=== PATIENT | male | born 1945 | race Caucasian/White ===

== ENCOUNTER 2019-11-17 11:13 | Emergency (ER) | payer MEDICARE, BC ==
[2019-11-17] MEDS ORDERED: cefTRIAXone 500 MG in Lidocaine 1% 1 ML IM ONE (11:53)
[2019-11-17] MEDS ORDERED: Doxycycline 100 MG Cap PO ONE (11:54)
--- NOTE | 2019-11-17 11:59 | EDM.PDOC ---
ED HPI GENERAL MEDICAL PROBLEM - General Chief Complaint: General Stated Complaint: EPIDIDYMITIS Time Seen by Provider: 11/17/19 11:17 - History of Present Illness INITIAL COMMENTS - FREE TEXT/NARRATIVE: History of present illness: Patient presents with left testicular pain is been going on for approximately 10 days he went to another emergency department about a week ago and was prescribed oral vancomycin for epididymitis. Says the pain is been gradual he did have a little bit of blood in his urine he denies any sudden onset of pain no nausea or vomiting and he states that the testicle is gradually gotten more swollen and more tender to touch no fever chills no vomiting nothing makes it better touching or pressure makes it worse. Pain was of gradual onset he denies any penile discharge Review of systems: As per history of present illness and below otherwise all systems reviewed and negative. Past medical history: As per history of present illness and as reviewed below otherwise noncontributory. Surgical history: As per history of present illness and as reviewed below otherwise noncontributory. Social history: No reported history of drug or alcohol abuse. Family history: As per history of present illness and as reviewed below otherwise noncontributory. Physical exam: HEENT: Atraumatic, normocephalic, pupils reactive, negative for conjunctival pallor or scleral icterus, mucous membranes moist, throat clear, neck supple, nontender, trachea midline. Lungs: Clear to auscultation, breath sounds equal bilaterally, chest nontender. Heart: S1S2, regular, negative for clicks, rubs, or JVD. Abdomen: Soft, nondistended, nontender. Negative for masses or hepatosplenomegaly. Negative for costovertebral tenderness. Pelvis: Stable nontender. Genitourinary: Normal male genitalia with a very swollen left testicle. The testicle is edematous tender to touch there is no evidence of hernia there is no discharge. Rectal: Deferred. Extremities: Atraumatic, negative for cords or calf pain. Neurovascular u nremarkable. Neuro: Awake, alert, oriented. Cranial nerves II through XII unremarkable. Cerebellum unremarkable. Motor and sensory unremarkable throughout. Exam nonfocal. Diagnostics: [] Therapeutics: [] Impression: [] Plan: [] Definitive disposition and diagnosis as appropriate pending reevaluation and review of above. penile Pain Score (Numeric/FACES): 9 - Related Data Allergies Allergy/AdvReac Type Severity Reaction Status Date / Time No Known Allergies Allergy Verified 11/17/19 11:36 Home Meds: Home Meds Testosterone 11/17/19 [History] Vancomycin [Vancomycin Cap] 250 mg PO 11/17/19 [History] Past Medical History - Past Health History Medical/Surgical History: Denies Medical/Surgical History Social & Family History - Family History Family Medical History: Noncontributory ED ROS GENERAL - Review of Systems Review Of Systems: See Below ED EXAM, GENERAL - Physical Exam Exam: See Below Course - Vital Signs Text/Narrative:: Patient presents with a gradual onset of scrotal pain and swelling this is not at all likely to be a torsion due to the natural history and evolution of the process. He has a localized tender swollen testicle consistent with epididymitis orchitis. No evidence of hernia. His vital signs are stable he is afebrile at this time curiously he was placed on vancomycin orally for this this is not an absorbable antibiotic and is not used to treat this infection. I am going to give him a shot of Rocephin empirically in the emergency department and start him on the recommended levofloxacin for this condition. I will also have him follow-up with urology locally. Last Recorded V/S: Last Vital Signs Temp 36.5 C 11/17/19 11:30 Pulse 55 L 11/17/19 11:30 Resp 16 11/17/19 11:30 BP 145/92 H 11/17/19 11:30 Pulse Ox 93 L 11/17/19 11:30 - Orders/Labs/Meds Meds: Medications Discontinued Medications Generic Name Dose Route Start Last Admin Trade Name Svitlana PRN Reason Stop Dose Admin Doxycycline Hyclate 100 mg 11/17/19 11:54 Vibramycin PO 11/17/19 11:55 ONETIME ONE Ceftriaxone Sodium 500 mg/ 1 mls @ 1 mls/sec 11/17/19 11:53 Lidocaine HCl IM 11/17/19 11:54 ONETIME ONE Levofloxacin 500 mg 11/17/19 12:00 Levaquin PO 11/17/19 12:01 ONETIME ONE Departure - Departure Time of Disposition: 12:03 Disposition: Home, Self-Care 01 Condition: Good Clinical Impression: Orchitis and epididymitis - Discharge Information *PRESCRIPTION DRUG MONITORING PROGRAM REVIEWED*: Not Applicable *COPY OF PRESCRIPTION DRUG MONITORING REPORT IN PATIENT BARBARA: Not Applicable Instructions: Epididymitis Referrals: PCP,Not In Area [Primary Care Provider] - Forms: ED Department Discharge Additional Instructions: The following information is given to patients seen in the emergency department who are being discharged to home. This information is to outline your options for follow-up care. We provide all patients seen in our emergency department with a follow-up referral. The need for follow-up, as well as the timing and circumstances, are variable depending upon the specifics of your emergency department visit. If you don't have a primary care physician on staff, we will provide you with a referral. We always advise you to contact your personal physician following an emergency department visit to inform them of the circumstance of the visit and for follow-up with them and/or the need for any referrals to a consulting specialist. The emergency department will also refer you to a specialist when appropriate. This referral assures that you have the opportunity for follow-up care with a specialist. All of these measure are taken in an effort to provide you with optimal care, which includes your follow-up. Under all circumstances we always encourage you to contact your private physician who remains a resource for coordinating your care. When calling for follow-up care, please make the office aware that this follow-up is from your recent emergency room visit. If for any reason you are refused follow-up, please contact the [facility] Emergency Department at and asked to speak to the emergency department charge nurse. [facility] [address] [place] [id number] Sepsis Event Note (ED) - Evaluation Sepsis Screening Result: No Definite Risk - Focused Exam Vital Signs: Vital Signs Temp Pulse Resp BP Pulse Ox 11/17/19 11:30 36.5 C 55 L 16 145/92 H 93 L
[2019-11-17] MEDS ORDERED: Levofloxacin 500 MG Tab PO ONE (12:00)
== END 2019-11-17 12:35 | disposition home or self-care (01) ==
LOC: MW.ED 11:13
DX: N45.3 Epididymo-orchitis (principal)
CPT/HCPCS: 96372; 99283; A9270; J0696; J2001; 99282

== ENCOUNTER 2020-12-08 10:37 | Day surgery (SDC) | payer MEDICARE, BC ==
[~2020-12-08 10:37] MED LIST: Lactated Ringers 1,000 ML IV SCH; Sodium Chloride 0.9% 10 ML SDV IV PRN; Sodium Chloride 0.9% 10 ML Syringe FLUSH PRN; Sodium Chloride 0.9% 2.5 ML Syringe FLUSH PRN
--- NOTE | 2020-12-08 11:12 | PCM.PREANE ---
Preanesthetic Assessment - Procedure Proposed Procedure: EGD, Colonoscopy - Anesthesia/Transfusion/Family Hx Anesthesia History: Prior Anesthesia Without Reaction Family History of Anesthesia Reaction: No Transfusion History: No Prior Transfusion(s) - Review of Systems General: No Symptoms Pulmonary: No Symptoms Cardiovascular: No Symptoms (Remote smoking hx) Gastrointestinal: No Symptoms (GERD PRN pepcid) Neurological: No Symptoms Other: Reports: None - Physical Assessment NPO Status Date: 12/06/20 NPO Status Time: 18:00 (Solids, >8Hr Liq) Vital Signs: Last Vital Signs Temp 97.3 F 12/08/20 10:48 Pulse 68 12/08/20 10:48 Resp 15 12/08/20 10:48 BP 166/77 H 12/08/20 10:48 Pulse Ox 95 12/08/20 10:48 Height: 6 ft Weight: 113.398 kg (obesity) ASA Class: 2 Mental Status: Alert & Oriented x3 Airway Class: Mallampati = 3 Dentition: Reports: Normal Dentition Thyro-Mental Finger Breadths: 3 Mouth Opening Finger Breadths: 3 ROM/Head Extension: Full Lungs: Clear to Auscultation, Normal Respiratory Effort Cardiovascular: Regular Rate, Regular Rhythm - Allergies Allergies/Adverse Reactions: Allergies Allergy/AdvReac Type Severity Reaction Status Date / Time peach Allergy Rash Verified 12/04/20 12:18 - Acknowledgements Anesthesia Type Planned: General Anesthesia Pt an Appropriate Candidate for the Planned Anesthesia: Yes Alternatives and Risks of Anesthesia Discussed w Pt/Guardian: Yes Pt/Guardian Understands and Agrees with Anesthesia Plan: Yes PreAnesthesia Questionnaire - Past Health History Medical/Surgical History: Denies Medical/Surgical History HEENT History: Reports: Cataract, Hard of Hearing Other HEENT History: wears glasses, has bilateral hearing aides Cardiovascular History: Reports: None Respiratory History: Reports: Sleep Apnea Other Respiratory History: uses CPAP nightly Gastrointestinal History: Reports: Other (See Below) Other Gastrointestinal History: some heartburn- takes TUMS, currently has dysphagia Genitourinary History: Reports: None Musculoskeletal History: Reports: Fracture Other Musculoskeletal History: hx of fx leg and clavicle and both arms Neurological History: Reports: None Psychiatric History: Reports: None Endocrine/Metabolic History: Reports: Obesity/BMI 30+ Hematologic History: Reports: None Immunologic History: Reports: None Oncologic (Cancer) History: Reports: Malignant Melanoma Other Oncologic History: removed from back Dermatologic History: Reports: Melanoma - Past Surgical History HEENT Surgical History: Reports: Cataract Surgery Cardiovascular Surgical History: Reports: None GI Surgical History: Reports: Colonoscopy Male Surgical History: Reports: Other (See Below) Other Male Surgeries/Procedures: Hydrocele repair Endocrine Surgical History: Reports: None Neurological Surgical History: Reports: None Musculoskeletal Surgical History: Reports: Other (See Below) Other Musculoskeletal Surgeries/Procedures:: ORIF left clavicle and left leg- both have hardware Dermatological Surgical History: Reports: Skin Biopsy - SUBSTANCE USE Tobacco Use Status *Q: Former Tobacco User Recreational Drug Use History: No - HOME MEDS Home Medications: Home Meds Fish Oil/[place]-3 Fatty Acids [Fish Oil 1,000 MG] 1 gm PO DAILY 12/04/20 [History] Multivitamin 1 tab PO DAILY 12/04/20 [History] Sildenafil Citrate [Viagra] 100 mg PO ASDIRECTED PRN 12/04/20 [History] Testosterone Cypionate 1 dose IM ASDIRECTED 12/04/20 [History] - CURRENT (IN HOUSE) MEDS Current Meds: Current Medications Lactated Ringer's (Ringers, Lactated) 1,000 mls @ 125 mls/hr IV ASDIRECTED THAD Sodium Chloride (Sodium Chloride 0.9% 10 Ml Syringe) 10 ml FLUSH ASDIRECTED PRN PRN Reason: Keep Vein Open Sodium Chloride (Sodium Chloride 0.9% 2.5 Ml Syringe) 2.5 ml FLUSH ASDIRECTED PRN PRN Reason: Keep Vein Open Sodium Chloride (Sodium Chloride 0.9% 10 Ml Syringe) 10 ml FLUSH ASDIRECTED PRN PRN Reason: Keep Vein Open Sodium Chloride (Sodium Chloride 0.9% 2.5 Ml Syringe) 2.5 ml FLUSH ASDIRECTED PRN PRN Reason: Keep Vein Open Sodium Chloride (Sodium Chloride 0.9% 10 Ml Sdv) 10 ml IV ASDIRECTED PRN PRN Reason: IV Use
[2020-12-08] MEDS ORDERED: propofoL 50 ML ONE (12:43)
[2020-12-08] MEDS ORDERED: Benzocaine 20% Topical Spray UD ONE (12:47)
[2020-12-08] MEDS ORDERED: fentaNYL 100 MCG/2 ML SDV ONE (12:47)
--- NOTE | 2020-12-08 13:52 | PCM.POSTAN ---
POST ANESTHESIA ASSESSMENT - MENTAL STATUS Mental Status: Somnolent - VITAL SIGNS Vital Signs: Last Vital Signs Temp 97.3 F 12/08/20 10:48 Pulse 68 12/08/20 10:48 Resp 15 12/08/20 10:48 BP 166/77 H 12/08/20 10:48 Pulse Ox 95 12/08/20 10:48 - RESPIRATORY Respiratory Status: Respiratory Rate WNL, Airway Patent, O2 Saturation Stable - CARDIOVASCULAR CV Status: Pulse Rate WNL, Blood Pressure Stable - GASTROINTESTINAL GI Status: No Symptoms - PAIN Free Text/Narrative:: Resting comfortably - POST OP HYDRATION Hydration Status: Adequate & Stable
--- NOTE | 2020-12-08 13:52 | PCM.OPNOTE ---
- General Post-Op/Procedure Note Date of Surgery/Procedure: 12/08/20 Operative Procedure(s): Diagnostic EGD and screening colonoscopy Findings: 1) Hiatal hernia with esophagitis and mild stricture 2) Sigmoid colon polyp x 3 Pre Op Diagnosis: Dysphagia, screening colonoscopy Post-Op Diagnosis: Hiatal hernia with esophagitis and mild stricture, sigmoid colon polyp x 3 Anesthesia Technique: MAC Primary Surgeon: Pamela Costello Condition: Good
--- NOTE | 2020-12-08 14:03 | PCM48HPAN ---
Post Anesthesia Note - EVALUATION WITHIN 48HRS OF ANESTHETIC Vital Signs in Normal Range: Yes Patient Participated in Evaluation: Yes Respiratory Function Stable: Yes Airway Patent: Yes Cardiovascular Function Stable: Yes Hydration Status Stable: Yes Pain Control Satisfactory: Yes Nausea and Vomiting Control Satisfactory: Yes Mental Status Recovered: Yes Vital Signs: Last Vital Signs Temp 97.0 F 12/08/20 13:45 Pulse 93 12/08/20 13:55 Resp 12 12/08/20 13:55 BP 94/77 12/08/20 13:55 Pulse Ox 97 12/08/20 13:55 - COMMENTS/OBSERVATIONS Free Text/Narrative:: Pt doing well post-op. VSS. No apparent anesthetic complications. Dr. Camilo Garcia
--- NOTE | 2020-12-08 16:12 | OR ---
SURGEON: PAMELA COSTELLO MD DATE OF PROCEDURE: 12/08/2020 PREOPERATIVE DIAGNOSES: 1. Dysphagia. 2. Screening colonoscopy. POSTOPERATIVE DIAGNOSES: 1. Hiatal hernia with esophagitis. 2. Sigmoid colon polyps x3. PROCEDURE PERFORMED: Diagnostic esophagogastroduodenoscopy and screening colonoscopy with polypectomy. PRIMARY SURGEON: Pamela Costello MD ANESTHESIA: MAC. INSTRUMENT USED: Olympus endoscope and colonoscope. EXTENT OF EXAM: To the second portion of duodenum, to the cecum. PREPARATION: Good. LIMITATIONS: None. INDICATIONS FOR EXAMINATION: The patient is a 75-year-old male who presented to my office with two concerns: 1. He has been having progressive dysphagia. 2. He is due for a screening colonoscopy. The patient and I discussed the need for diagnostic EGD and a screening colonoscopy. I explained the procedures, expected perioperative course, and the risks. The patient verbalized understanding and wishes to proceed. PROCEDURE IN DETAIL: The patient was brought in to the endoscopy suite and placed in the left lateral decubitus position. A time-out was completed verifying the patient's name, age, date of , allergies, and procedure to be performed. Monitored anesthesia care was induced and continuous oxygen was provided via face mask throughout the procedure. A bite block was placed in the patient's mouth. After adequate sedation was achieved, a well-lubricated endoscope was placed in the patient's mouth and advanced under direct visualization to the second portion of duodenum. This appeared normal and a photograph was taken. The scope was then fully withdrawn while examining the color, texture, anatomy, and integrity mucosa of the upper GI tract. The duodenum appeared normal. The scope was brought into the stomach and a photograph was taken of the pylorus and GE junction. The patient was noted to have a hiatal hernia. Biopsies were taken of the gastric antrum, body, and fundus and sent for histologic review and H pylori testing. There was no evidence of gross inflammation or ulceration of the gastric mucosa. The scope was then brought into the hiatal hernia sac. The hiatal hernia sac went from 45 cm to 38 cm. The Z-line appeared irregular. There was irregular tissue within the distal esophagus. A photograph of this was taken. The patient was noted to have a mild stricture at the Z-line. There appeared to be esophagitis along the distal esophagus. Biopsies were taken circumferentially just above the Z-line in the distal esophagus and labeled as esophageal biopsy #1. 2 cm above this, I took another sample of the esophageal mucosa circumferentially. This was labeled as esophageal biopsy #2. The remainder of the esophagus appeared normal. A photograph was taken of the area prior to the biopsies using narrow band imaging. The scope was removed and this portion of procedure terminated. A digital rectal exam was performed. The patient had a prolapsed left lateral hemorrhoidal column. Otherwise, the digital rectal exam was normal. A well-lubricated colonoscope was inserted in the rectum and advanced under direct visualization to the level of cecum. Cecum was identified by both visual and anatomic landmarks. A photograph was taken of the cecal cap as well as with the scope retroflexed within the cecum. The scope was then fully withdrawn while examining the color, texture, anatomy, and integrity of mucosa from the cecum to the anal canal. The patient was noted to have a pedunculated polyp at 40 cm in the sigmoid colon. This was removed using a hot snare. The area was then inked for identification in the future. The patient had two distal sigmoid colon polyps. These were removed in piecemeal fashion using a cold biopsy forceps. They were labeled as distal sigmoid colon polyp #2 and #3. The scope was then brought into the rectum and retroflexed to allow visualization of the anal canal opening. This appeared normal and a photograph was taken. The scope was then straightened out and fully withdrawn. The cecum to anus time was greater than 6 minutes. The patient tolerated the procedure well and was transferred to the PACU in stable condition. ENDOSCOPIC DIAGNOSES: 1. Hiatal hernia with esophagitis. 2. Sigmoid colon polyps x3. RECOMMENDATIONS: We will start the patient on a daily PPI. We will follow up with the results of his biopsies in clinic. LUIS STARK /[id number]
== END 2020-12-08 14:30 | disposition home or self-care (01) ==
LOC: MW.SDS 10:37
PROVIDERS: ATTEND Surgery
DX: Z12.11 Encounter for screening for malignant neoplasm of colon (principal); D12.5 Benign neoplasm of sigmoid colon; K44.9 Diaphragmatic hernia without obstruction or gangrene; K20.90 Esophagitis, unspecified without bleeding; R13.10 Dysphagia, unspecified; E66.9 Obesity, unspecified; Z87.891 Personal history of nicotine dependence; Z79.899 Other long term (current) drug therapy; Z98.890 Other specified postprocedural states; Z91.018 Allergy to other foods; Z68.35 Body mass index [BMI] 35.0-35.9, adult
CPT/HCPCS: 43239; 45380; 45385; A9270; J2704; J3010; J7120; 00813; 88305; 88342; 99100

== ENCOUNTER 2021-09-24 11:43 | Day surgery (SDC) | payer MEDICARE, BC ==
[2021-09-24] MEDS ORDERED: Octyl 2-Cyanoacrylate 1 Tube ONE (12:21)
[2021-09-24] MEDS ORDERED: Bupivacaine 0.5% 30 ML SDV ONE (12:21)
[2021-09-24] MEDS ORDERED: Propofol 200 MG/20 ML SDV ONE (12:33)
[2021-09-24] MEDS ORDERED: Lidocaine 2% 5 ML SDV ONE (12:36)
[2021-09-24] MEDS ORDERED: Rocuronium 100 MG/10 ML MDV ONE (12:36)
[2021-09-24] MEDS ORDERED: fentaNYL 100 MCG/2 ML SDV ONE ×2 (12:36→14:01)
[2021-09-24] MEDS ORDERED: Ondansetron 4 MG/2 ML SDV ONE ×2 (12:38→14:17)
[2021-09-24] MEDS ORDERED: Ropivacaine 0.5% 5 MG/ML 30 ML SDV ONE (12:41)
[2021-09-24] MEDS ORDERED: Lactated Ringers 1,000 ML IV SCH (12:45)
[2021-09-24] MEDS ORDERED: Albuterol 0.083% 2.5 MG/3 ML Neb Soln NEB PRN (12:56)
[2021-09-24] MEDS ORDERED: Naloxone 0.4 MG/ML SDV IVPUSH PRN (12:56)
[2021-09-24] MEDS ORDERED: fentaNYL 50 MCG/ML SDV IVPUSH PRN (12:56)
[2021-09-24] MEDS ORDERED: Ondansetron 4 MG/2 ML SDV IVPUSH PRN (12:56)
[2021-09-24] MEDS ORDERED: Metoclopramide 10 MG/2 ML SDV IVPUSH PRN (12:56)
[2021-09-24] MEDS ORDERED: HYDROmorphone 1 MG/ML Syringe IVPUSH PRN (12:56)
[2021-09-24] MEDS ORDERED: Ketorolac 30 MG/ML SDV ONE (14:14)
[2021-09-24] MEDS ORDERED: Sugammadex Sodium 200 MG/2 ML VIAL ONE (14:14)
== END 2021-09-24 16:25 | disposition home or self-care (01) ==
LOC: MW.SDS 11:43
PROVIDERS: ATTEND Surgery
DX: E66.9 Obesity, unspecified (principal); K80.10 Calculus of gallbladder with chronic cholecystitis without obstruction; G47.33 Obstructive sleep apnea (adult) (pediatric); Z91.018 Allergy to other foods; Z79.899 Other long term (current) drug therapy; Z98.890 Other specified postprocedural states; Z68.33 Body mass index [BMI] 33.0-33.9, adult
CPT/HCPCS: 47562; A9270; J1885; J2405; J2704; J2795; J3010; J3490; J7030; J7120; 00790; 64488; 88304; 99100